=== PATIENT | female | born 1960 | race Caucasian/White ===

== ENCOUNTER 2016-08-31 09:43 | Outpatient (CLI) | payer BC ==
--- NOTE | 2016-08-31 12:36 | DIAGNOSTIC IMAGING REPORT ---
PROCEDURE: US ART LOWER EXT WITH RUBEN-B/L INDICATION: Nonhealing left great toe wound, hypertension TECHNIQUE: Color Doppler duplex imaging of the lower extremity arterial system was performed bilaterally. Pre exercise ABIs were acquired. The patient was unable to exercise. COMPARISON: None FINDINGS: RIGHT LOWER EXTREMITY: ABIs: Pre exercise posterior tibial: 0.73. Pre exercise dorsalis pedis: 0.81. VESSELS/ WAVEFORMS: Long segment of eccentric calcific irregularity in the common femoral and external iliac arteries. Biphasic arterial inflow. Biphasic flow throughout the right lower extremity with monophasic flow in the distal posterior tibial artery and peroneal arteries. RIGHT LOWER EXTREMITY PEAK SYSTOLIC VELOCITIES: External iliac: 228 cm/second. Common femoral artery: 165 cm/second. Profunda femoral artery: 72 cm/second. Proximal superficial femoral artery: 97 cm/second. Mid superficial femoral artery: 81 cm/second. Distal superficial femoral artery: 76 cm/second. Popliteal artery: 67 cm/second. Proximal posterior tibial artery: 17 cm/second. Proximal anterior tibial artery: 30 cm/second. Peroneal artery: Nine cm/second. Distal posterior tibial artery: 15 cm/second. Dorsalis pedis artery: 24 cm/second. LEFT LOWER EXTREMITY: ABIs: Pre exercise posterior tibial: 0.62. Pre exercise dorsalis pedis: 0.69. VESSELS/ WAVEFORMS: Scattered areas of eccentric calcification in the left common femoral and superficial femoral arteries. There is minimally biphasic arterial inflow and monophasic arterial flow in the superficial femoral artery and popliteal arteries. In the calf arteries, but monophasic flow is seen with slightly delayed systolic acceleration. LEFT LOWER EXTREMITY PEAK SYSTOLIC VELOCITIES: External iliac: 122 cm/second. Common femoral artery: 122 cm/second. Profunda femoral artery: 63 cm/second. Proximal superficial femoral artery: 81 cm/second. Mid superficial femoral artery: 248 cm/second. Distal superficial femoral artery: 92 cm/second. Popliteal artery: 35 cm/second. Proximal posterior tibial artery: 20 cm/second. Proximal anterior tibial artery: 21 cm/second. Peroneal artery: 11 cm/second. Distal posterior tibial artery: 18 cm/second. Dorsalis pedis artery: 24 cm/second. IMPRESSION: 1. Focal velocity elevation in the left mid superficial femoral artery, and monophasic flow in the distal left lower extremity, implies a focal hemodynamically significant stenosis in the left proximal to mid SFA. Cross-sectional angiography) MRA or CTA lower extremities is recommended for confirmation. 2. Moderate resting arterial insufficiency in the lower extremities bilaterally, left worse than right. 3. Atherosclerotic calcification in proximal lower extremity arteries bilaterally.
== END 2016-08-31 23:00 ==
LOC: US SRH 09:43
DX: I77.1 Stricture of artery (principal); I70.202 Unspecified atherosclerosis of native arteries of extremities, left leg